=== PATIENT | female | born 1990 | race Caucasian/White ===

== ENCOUNTER 2023-02-24 07:51 | Emergency (ER) | payer BC ==
[2023-02-24 08:48] LABS: Specific Gravity > 1.030 (1.005-1.030)
[2023-02-24 08:50] LABS: Absolute Lymphocytes (CBC) 2.1 K/uL (0.7-4.9); Hematocrit 44.3 % (36.0-45.0); Lymphocytes % 25.8 % (15.3-44.8); MCV 93.1 fL (80-100); MPV 7.2 fL (7.6-11.3); Platelets 340 thou/uL (152-406); RBC Red Blood Cell Count 4.76 M/uL (3.86-4.86)
[2023-02-24 08:50] LABS: Specific Gravity > 1.030 (1.005-1.030); Urine Bacteria <20 /HPF (<20); Urine Bilirubin NEGATIVE (Negative); Urine Blood Negative (Negative); Urine Clarity Extremely Turbid (Clear); Urine Color Yellow (Yellow); Urine Glucose NEGATIVE (Negative); Urine Mucus 1+ /HPF (None Seen); Urine Protein TRACE (Negative); Urine Urobilinogen Normal (Normal); Urine pH 5.5 (5.0-7.0)
[2023-02-24] MEDS ORDERED: DICYCLOMINE HCL 10 MG CAP ONE (09:02)
[2023-02-24] MEDS ORDERED: PANTOPRAZOLE 40 MG INJ ONE (09:02)
[2023-02-24] MEDS ORDERED: NA CHLORIDE 0.9% 1,000 ML ONE (09:02)
[2023-02-24] MEDS ORDERED: LORAZEPAM 1 MG TABLET ONE (09:02)
[2023-02-24 09:04] LABS: Albumin 3.9 g/dL (3.4-5.0); Bilirubin Total 0.5 mg/dL (0.2-1.0); Potassium 4.2 mEq/L (3.5-5.1); Protein, Total 7.7 g/dL (6.4-8.2)
[2023-02-24] MEDS ORDERED: SUCRALFATE 1 GM TABLET ONE (09:51)
--- NOTE | 2023-02-24 10:02 | EDPHYS ---
Physician Documentation [facility] Name: Eleanor Melgar Age: 33 yrs Sex: Female : 1990 Arrival Date: 02/24/2023 Time: 07:51 Bed 14 Private MD: ED Physician Sola Mireles HPI: 02/24 09:58 This 33 yrs old Female presents to ER via Ambulatory with complaints of Abdominal Pain. snw 09:58 The patient presents with abdominal pain in the epigastric area. Onset: The snw symptoms/episode began/occurred acutely. The symptoms do not radiate. Associated signs and symptoms: Pertinent positives: cramping. The symptoms are described as crampy. Severity of pain: At its worst the pain was moderate severe in the emergency department the pain is unchanged. The patient has not experienced similar symptoms in the past. It is unknown whether or not the patient has recently seen a physician. pt smokes and takes adderall. 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 - Social history:: Smoking status: Patient reports the use of cigarette tobacco products, smokes one-half pack cigarettes per day, Patient/guardian denies using alcohol. ROS: 09:58 Constitutional: Negative for fever, chills, and weight loss, Eyes: Negative for injury, snw pain, redness, and discharge, ENT: Negative for injury, pain, and discharge, Neck: Negative for injury, pain, and swelling, Cardiovascular: Negative for chest pain, palpitations, and edema, Respiratory: Negative for shortness of breath, cough, wheezing, and pleuritic chest pain, Back: Negative for injury and pain, : Negative for injury, bleeding, discharge, and swelling, MS/Extremity: Negative for injury and deformity, Skin: Negative for injury, rash, and discoloration, Neuro: Negative for headache, weakness, numbness, tingling, and seizure, Psych: Negative for depression, anxiety, suicide ideation, homicidal ideation, and hallucinations, 09:58 Abdomen/GI: Positive for abdominal pain, Exam: 09:57 Constitutional: This is a well developed, well nourished patient who is awake, alert, snw and in no acute distress. Head/Face: Normocephalic, atraumatic. Eyes: Pupils equal round and reactive to light, extra-ocular motions intact. Lids and lashes normal. Conjunctiva and sclera are non-icteric and not injected. Cornea within normal limits. Periorbital areas with no swelling, redness, or edema. ENT: Nares patent. No nasal discharge, no septal abnormalities noted. Tympanic membranes are normal and external auditory canals are clear. Oropharynx with no redness, swelling, or masses, exudates, or evidence of obstruction, uvula midline. Mucous membranes moist. Neck: Trachea midline, no thyromegaly or masses palpated, and no cervical lymphadenopathy. Supple, full range of motion without nuchal rigidity, or vertebral point tenderness. No Meningismus. Chest/axilla: Normal chest wall appearance and motion. Nontender with no deformity. No lesions are appreciated. Cardiovascular: Regular rate and rhythm with a normal S1 and S2. No gallops, murmurs, or rubs. Normal PMI, no JVD. No pulse deficits. Respiratory: Lungs have equal breath sounds bilaterally, clear to auscultation and percussion. No rales, rhonchi or wheezes noted. No increased work of breathing, no retractions or nasal flaring. Back: No spinal tenderness. No costovertebral tenderness. Full range of motion. Skin: Warm, dry with normal turgor. Normal color with no rashes, no lesions, and no evidence of cellulitis. MS/ Extremity: Pulses equal, no cyanosis. Neurovascular intact. Full, normal range of motion. Neuro: Awake and alert, GCS 15, oriented to person, place, time, and situation. Cranial nerves II-XII grossly intact. Motor strength 5/5 in all extremities. Sensory grossly intact. Cerebellar exam normal. Normal gait. 09:57 Abdomen/GI: Inspection: abdomen appears normal, Bowel sounds: normal, Palpation: moderate abdominal tenderness, in the epigastric area, 09:57 Psych: Behavior/mood is pleasant, cooperative, anxious, Affect is anxious. Oriented to person, place, time, Vital Signs: 08:17 Weight 104.33 kg; Height 5 ft. 9 in. ; Pain 6/10; ld1 09:04 BP 141 / 83; Pulse 81; Resp 18; Pulse Ox 98% ; ld1 09:42 BP 130 / 77; Pulse 71; Resp 17; Pulse Ox 100% ; Pain 7/10; nj1 10:30 BP 121 / 66; Pulse 74; Resp 16; Pulse Ox 100% ; Pain 4/10; nj1 08:17 Body Mass Index 33.96 (104.33 kg, 175.26 cm) ld1 08:17 Pain Scale: Adult ld1 09:42 Pain Scale: Adult nj1 10:30 Pain Scale: Adult nj1 MDM: 08:24 Patient medically screened. snw 09:58 Differential diagnosis: cholecystitis, Cholelithiasis, gastritis, gastroesophageal snw reflux disease, GI Bleed, Irritable bowel syndrome. Data reviewed: vital signs, nurses notes. I considered the following discharge prescriptions or medication management in the emergency department Medications were administered in the Emergency Department. See MAR. Counseling: I had a detailed discussion with the patient and/or guardian regarding the historical points, exam findings, and any diagnostic results supporting the discharge/admit diagnosis, lab results, the need for outpatient follow up, for definitive care. Response to treatment: the patient's symptoms have mildly improved after treatment. Special discussion: Based on the patient's Hx, exam, and Dx evaluation, there is no indication for emergent surgery or inpatient Tx. It is understood by the patient/guardian that if the Sx's persist or worsen they need to return immediately for re-evaluation. Based on the history and exam findings, there is no indication for further emergent testing or inpatient evaluation. 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 I discussed with the patient/guardian the need to see the primary care provider for further evaluation of the symptoms. 02/24 08:18 Order name: CBC with Diff; Complete Time: : ld1 02/24 08:18 Order name: CMP; Complete Time: 09: ld1 02/24 08:18 Order name: Lipase; Complete Time: 09: ld1 02/24 08:18 Order name: Test, Urine; Complete Time: 08:54 ld1 02/24 08:18 Order name: Urinalysis w/ reflexes; Complete Time: 08:54 ld1 02/24 08:26 Order name: Troponin HS; Complete Time: 09:14 snw 02/24 08:18 Order name: IV Saline Lock; Complete Time: 08:41 ld1 02/24 08:18 Order name: Labs collected and sent; Complete Time: 08:41 ld1 Administered Medications: 08:53 Drug: Pantoprazole IVP 40 mg IVP once Route: IVP; Site: left antecubital; ld1 10:30 Follow up: Response: No adverse reaction nj1 08:54 Drug: Dicyclomine PO 20 mg PO once Route: PO; ld1 10:30 Follow up: Response: No adverse reaction nj1 08:54 Drug: LORazepam PO 1 mg PO once; sublingually Route: PO; ld1 10:30 Follow up: Response: No adverse reaction nj1 08:54 Drug: NS 0.9% IV 1000 ml IV at 125 ml/hr continuous Route: IV; Rate: 125 ml/hr; Site: ld1 left antecubital; 10:30 Follow up: IV Status: Order to discontinue infusion; IV Intake: 600ml nj1 09:41 Drug: Sucralfate PO 1 grams PO once Route: PO; nj1 10:30 Follow up: Response: No adverse reaction nj1 Disposition Summary: 02/24/23 10:01 Discharge Ordered Notes: Location: Home snw Condition: Stable snw Diagnosis - Gastritis, unspecified snw Followup: snw - With: Emergency Department - When: As needed - Reason: Worsening of condition Followup: snw - With: Private Physician - When: 2 - 3 days - Reason: Recheck today's complaints, Continuance of care, Re-evaluation by your physician Followup: snw - With: Vasquez Dallas MD - When: 5 - 6 days - Reason: Recheck today's complaints, Continuance of care Discharge Instructions: - Discharge Summary Sheet snw - Diet for Irritable Bowel Syndrome snw - Gastritis, Adult snw - Steps to Quit Smoking snw - Health Risks of Smoking snw - Managing the Challenge of Quitting Smoking snw Forms: - Medication Reconciliation Form snw - Thank You Letter snw - Antibiotic Education snw - Prescription Opioid Use snw - Patient Portal Instructions snw - Leadership Thank You Letter snw Prescriptions: - Carafate 1 gram Oral Tablet - take 1 tablet ORAL route 4 times per day take on an empty stomach, beginning on snw waking and last dose at bedtime; 100 tablet; Refills: 0, Product Selection Permitted - dicyclomine 20 mg Oral tablet - take 1 tablet ORAL route 3 times per day As needed; 21 tablet; Refills: 0, snw Product Selection Permitted Signatures: Dispatcher [employer] EDIN [place] Rangel FNP-C WATER 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
--- NOTE | 2023-02-24 10:02 | ER ---
Nurse's Notes [facility] Name: Eleanor Melgar Age: 33 yrs Sex: Female : 1990 Arrival Date: 02/24/2023 Time: 07:51 Bed 14 Private MD: Diagnosis: Gastritis, unspecified Presentation: 02/24 08:17 Chief complaint: Patient states: Epigastric pain X 1 day - constant. Coronavirus ld1 screen: At this time, the client does not indicate any symptoms associated with coronavirus-19. Ebola Screen: No symptoms or risks identified at this time. Initial Sepsis Screen:. Onset of symptoms was February 24, 2023. 08:17 Method Of Arrival: Ambulatory ld1 08:17 Acuity: FRANKLYN 3 ld1 10:30 Risk Assessment: Do you want to hurt yourself or someone else? Patient reports no nj1 desire to harm self or others. 10:30 Initial Sepsis Screen: Does the patient meet any 2 criteria? No. Patient's initial nj1 sepsis screen is negative. Does the patient have a suspected source of infection? No. Patient's initial sepsis screen is negative. Triage Assessment: 08:18 General: Appears in no apparent distress. uncomfortable, Behavior is calm, cooperative, ld1 appropriate for age. Pain: Complains of pain in epigastric area Pain does not radiate. Pain currently is 8 out of 10 on a pain scale. Quality of pain is described as throbbing, Pain began suddenly, Is continuous. EENT: No signs and/or symptoms were reported regarding the EENT system. Neuro: Level of Consciousness is awake, alert, obeys commands, Oriented to person, place, time, situation. Cardiovascular: Capillary refill < 3 seconds Patient's skin is warm and dry. Respiratory: Airway is patent Respiratory effort is even, unlabored. GI: Abdomen is round non-distended, Reports epigastric pain. : No signs and/or symptoms were reported regarding the genitourinary system. Derm: No signs and/or symptoms reported regarding the dermatologic system. Musculoskeletal: No signs and/or symptoms reported regarding the musculoskeletal system. 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 - Social history:: Smoking status: Patient reports the use of cigarette tobacco products, smokes one-half pack cigarettes per day, Patient/guardian denies using alcohol. Screenin:20 [facility] ED Fall Risk Assessment (Adult) History of falling in the last 3 months, ld1 including since admission No falls in past 3 months (0 pts). Abuse screen: Denies threats or abuse. Denies injuries from another. Nutritional screening: No deficits noted. Tuberculosis screening: No symptoms or risk factors identified. Assessment: 08:20 Reassessment: See triage assessment. ld1 09:42 Reassessment: Patient appears in no apparent distress at this time. Patient and/or nj1 family updated on plan of care and expected duration. Pain level reassessed. Patient is alert, oriented x 3, equal unlabored respirations, skin warm/dry/pink. Pain: Complains of pain in abdomen Pain currently is 7 out of 10 on a pain scale. 10:30 Reassessment: Patient appears in no apparent distress at this time. Patient and/or nj1 family updated on plan of care and expected duration. Pain level reassessed. Patient is alert, oriented x 3, equal unlabored respirations, skin warm/dry/pink. Patient states feeling better. Patient states symptoms have improved. Vital Signs: 08:17 Weight 104.33 kg; Height 5 ft. 9 in. ; Pain 6/10; ld1 09:04 BP 141 / 83; Pulse 81; Resp 18; Pulse Ox 98% ; ld1 09:42 BP 130 / 77; Pulse 71; Resp 17; Pulse Ox 100% ; Pain 7/10; nj1 10:30 BP 121 / 66; Pulse 74; Resp 16; Pulse Ox 100% ; Pain 4/10; nj1 08:17 Body Mass Index 33.96 (104.33 kg, 175.26 cm) ld1 08:17 Pain Scale: Adult ld1 09:42 Pain Scale: Adult nj1 10:30 Pain Scale: Adult nj1 ED Course: 07:55 Patient arrived in ED. mg5 08:17 Jen Rees, SIMON is Primary Nurse. ld1 08:18 Triage completed. ld1 08:18 Arm band placed on right wrist. ld1 08:20 Patient has correct armband on for positive identification. Placed in gown. Bed in low ld1 position. Call light in reach. Side rails up X2. Pulse ox on. NIBP on. Door closed. Noise minimized. Warm blanket given. 08:20 No provider procedures requiring assistance completed. ld1 08:24 Verona Rangel FNP-C is PHCP. snw 08:24 Sola Mireles MD is Attending Physician. snw 08:41 Inserted saline lock: 20 gauge in left antecubital area, using aseptic technique. Blood ld1 collected. 10:01 Vasquez Dallas MD is Referral Physician. snw 10:30 Provided Education on: discharge instructions. nj1 10:30 IV discontinued, intact, bleeding controlled. nj1 Administered Medications: 08:53 Drug: Pantoprazole IVP 40 mg IVP once Route: IVP; Site: left antecubital; ld1 10:30 Follow up: Response: No adverse reaction nj1 08:54 Drug: Dicyclomine PO 20 mg PO once Route: PO; ld1 10:30 Follow up: Response: No adverse reaction nj1 08:54 Drug: LORazepam PO 1 mg PO once; sublingually Route: PO; ld1 10:30 Follow up: Response: No adverse reaction nj1 08:54 Drug: NS 0.9% IV 1000 ml IV at 125 ml/hr continuous Route: IV; Rate: 125 ml/hr; Site: ld1 left antecubital; 10:30 Follow up: IV Status: Order to discontinue infusion; IV Intake: 600ml nj1 09:41 Drug: Sucralfate PO 1 grams PO once Route: PO; nj1 10:30 Follow up: Response: No adverse reaction nj1 Medication: 08:20 VIS not applicable for this client. ld1 Intake: 10:30 IV: 600ml; Total: 600ml. nj1 Outcome: 10:01 Discharge ordered by . snw 10:30 Discharged to home ambulatory, nj1 10:30 Condition: stable 10:30 Discharge instructions given to patient, Instructed on discharge instructions, follow up and referral plans. medication usage, Demonstrated understanding of instructions, follow-up care, medications, Prescriptions given X 2, 10:37 Patient left the ED. nj1 Signatures: Rangel, [place], SQL APPLICATION DEVELOPER-C SQL APPLICATION DEVELOPER-Csnw Jen Rees RN RN ld1 Veronica Martinez RN RN nj1 Tabitha Nelson mg5 Corrections: (The following items were deleted from the chart) 08:19 08:18 PMHx: depression; ld1 ld1
[2023-02-24 11:07] VITALS: O2SAT 100
[2023-02-24 11:08] VITALS: BP 121/66
== END 2023-02-24 10:37 | disposition home or self-care (01) ==
LOC: ER 07:51
DX: K29.70 Gastritis, unspecified, without bleeding (principal); F17.210 Nicotine dependence, cigarettes, uncomplicated
CPT/HCPCS: 96361; 85025; 81001; 36415; 81025; 84484; 83690; 80053; 96374; 99284; C9113; J7030

== ENCOUNTER 2024-01-28 13:05 | Emergency (ER) | payer BC ==
[2024-01-28] MEDS ORDERED: ONDANSETRON 4 MG/2 ML VIAL ONE (14:21)
[2024-01-28] MEDS ORDERED: MORPHINE 4 MG/ML SYR ONE (14:21)
[2024-01-28] MEDS ORDERED: FAMOTIDINE 20 MG/2 ML VIAL IV ONE (14:21)
[2024-01-28 14:32] LABS: Absolute Basophils 0.1 K/uL (0-0.5); Absolute Eosinophils 0.3 K/uL (0-0.5); Absolute Lymphocytes (CBC) 2.3 K/uL (0.7-4.9); Absolute Monocytes 0.5 K/uL (0.1-1.3); Absolute Neutrophil 5.4 K/uL (1.8-8.0); Basophils % 1.1 % (0-1.3); Hematocrit 40.7 % (36.0-45.0); Hemoglobin 13.6 g/dL (12.0-15.0); Lymphocytes % 26.6 % (15.3-44.8); MCH 31.3 pg (27.0-35.0); MCHC 33.3 g/dL (32.0-36.0); MCV 93.9 fL (80-100); MPV 7.7 fL (7.6-11.3); Monocytes % 6.3 % (3.3-12.3); Platelets 301 thou/uL (152-406); RBC Red Blood Cell Count 4.34 M/uL (3.86-4.86); Red Cell Distribution Width 12.7 % (12.1-15.2)
[2024-01-28 14:36] LABS: Specific Gravity 1.021 (1.005-1.030)
[2024-01-28 14:43] LABS: AST/SGOT 13 U/L (15-37); Albumin 3.2 g/dL (3.4-5.0); Albumin/Globulin Ratio 0.9 (1.1-1.8); Alkaline Phosphatase 88 U/L (45-117); Anion Gap 8.9 mEq/L (5.0-15.0); BUN Blood Urea Nitrogen 9 mg/dL (7-18); Bicarbonate 25 mEq/L (21-32); Bilirubin Total 0.3 mg/dL (0.2-1.0); Globulin 3.5 g/dL (2.3-3.5); Glomerular Filtration Rate 120 ml/min (=/>90); Glucose Level 98 mg/dL (74-106); Lipase 27 U/L (13-75); Potassium 3.9 mEq/L (3.5-5.1); Protein, Total 6.7 g/dL (6.4-8.2); Sodium Level 139 mEq/L (136-145)
[2024-01-28 14:44] LABS: ALT/SGPT < 14 U/L (13-56)
[2024-01-28 14:44] LABS: Specific Gravity 1.021 (1.005-1.030); Urine Bacteria None Seen /HPF (<20); Urine Bilirubin NEGATIVE (Negative); Urine Blood Trace (Negative); Urine Clarity Turbid (Clear); Urine Color Light-Yellow (Yellow); Urine Culture Reflex Order NOT NEEDED; Urine Glucose NEGATIVE (Negative); Urine Ketones NEGATIVE (Negative); Urine Microscopic Reflex YN ORDER UMIC; Urine Mucus Slight /HPF (None Seen); Urine Nitrite NEGATIVE (Negative); Urine Protein NEGATIVE (Negative); Urine RBC <5 /HPF (None Seen); Urine Urobilinogen Normal (Normal); Urine WBC <5 /HPF (<5); Urine pH 5.5 (5.0-7.0)
--- NOTE | 2024-01-28 14:44 | RAD REPORT ---
EXAMINATION: ONE VIEW CHEST XR CLINICAL INDICATION: Female, 34 years old.epigastric pain TECHNIQUE: 1 View, AP supine, X-ray of the chest was performed. [id number]. COMPARISON: No prior exam. FINDINGS: Lungs and pleura: Clear lungs. No effusion. Heart and mediastinum: Normal heart size. Unremarkable mediastinal contours. Osseous structures: No acute abnormality. Tubes/lines: None Other: None. IMPRESSION: No acute intrathoracic abnormality.
--- NOTE | 2024-01-28 15:02 | RAD REPORT ---
EXAMINATION: CT ABDOMEN AND PELVIS WITH CONTRAST CLINICAL INDICATION: Female, 34 years old.EPIGASTRIC PAIN TECHNIQUE: CT abdomen and pelvis was performed, after the [facility] Axial, sagittal and coronal reconstructions were obtained. One or more of the following dose reduction techniques were used: Automated exposure control, adjustment of the mA and/o r kV according to patient size, and/or iterative reconstruction. Unless otherwise specified, incidental findings do not require dedicated imaging follow-up. [id number]. COMPARISON: No prior exam. FINDINGS: LOWER CHEST: The visualized lung bases are clear. LIVER: Normal in size and contour. No focal lesion. GALLBLADDER/BILE DUCT: No biliary ductal dilatation.?Cholecystectomy PANCREAS: No significant abnormality. SPLEEN: Normal size. No focal lesion. ADRENALS: Normal; no mass. KIDNEYS AND URETERS: Normal size and contour. No hydronephrosis. GASTROINTESTINAL TRACT: Stomach is non-dilated. Small bowel has normal course and caliber. No colonic wall thickening or pericolonic inflammatory changes. Normal appendix. PERITONEUM: No ascites. LYMPH NODES: No lymphadenopathy. ABDOMINAL AORTA AND OTHER VESSELS: Normal caliber aorta and IVC. URINARY BLADDER: Normal contour. REPRODUCTIVE ORGANS: No pathologic process IUD. MUSCULOSKELETAL: No acute or suspicious osseous abnormality. ADDITIONAL FINDINGS: None. IMPRESSION: No acute or significant abnormalities seen in the abdomen or pelvis. Normal appendix.
--- NOTE | 2024-01-28 15:21 | EDPHYS ---
Physician Documentation [facility] Name: Eleanor Melgar Age: 34 yrs Sex: Female : 1990 Arrival Date: 01/28/2024 Time: 13:05 Bed 13 Private MD: ED Physician Karl Gooden HPI: 01/27 13:18 This 34 yrs old Female presents to ER via Ambulatory with complaints of Abdominal Pain, cp Shortness Of Breath. 13:18 The patient presents with abdominal pain in the epigastric area. Onset: The cp symptoms/episode began/occurred last night, and became worse today. The symptoms do not radiate. Associated signs and symptoms: Pertinent positives: nausea, Pertinent negatives: constipation, diarrhea, vomiting. 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 - Infectious Disease History:: Denies. - Social history:: Smoking status: Patient reports the use of cigarette tobacco products, smokes one pack cigarettes per day. ROS: 13:25 Constitutional: Negative for body aches, chills, fever, poor PO intake, cp 13:25 Eyes: Negative for injury, pain, redness, and discharge, cp 13:25 ENT: Negative for drainage from ear(s), ear pain, sore throat, difficulty swallowing, difficulty handling secretions, 13:25 Cardiovascular: Negative for chest pain, edema, palpitations, 13:25 Respiratory: Negative for cough, shortness of breath, wheezing, 13:25 Abdomen/GI: Positive for abdominal pain, nausea, Negative for vomiting, diarrhea, constipation, 13:25 Back: Negative for radiated pain, 13:25 Neuro: Negative for altered mental status, headache, weakness, Exam: 14:10 Constitutional: The patient appears in no acute distress, alert, awake, cp non-diaphoretic, non-toxic, well developed, well nourished, uncomfortable, 14:10 Head/Face: Normocephalic, atraumatic. cp 14:10 Eyes: Periorbital structures: appear normal, Conjunctiva: normal, no exudate, no injection, Sclera: no appreciated abnormality, Lids and lashes: appear normal, bilaterally, 14:10 ENT: External ear(s): are unremarkable, Nose: is normal, Mouth: Lips: moist, Oral mucosa: pink and intact, moist, Posterior pharynx: Airway: no evidence of obstruction, patent, 14:10 Chest/axilla: Inspection: normal, 14:10 Cardiovascular: Rate: normal, Rhythm: regular, 14:10 Respiratory: the patient does not display signs of respiratory distress, Respirations: normal, no use of accessory muscles, no retractions, labored breathing, is not present, Breath sounds: are clear throughout, no decreased breath sounds, no stridor, no wheezing, 14:10 Abdomen/GI: Inspection: abdomen appears normal, Bowel sounds: active, all quadrants, Palpation: soft, in all quadrants, severe abdominal tenderness, in the epigastric area, rebound tenderness, is not appreciated, 14:10 Back: CVA tenderness, is absent, cp Vital Signs: 13:16 BP 123 / 79; Pulse 91; Resp 16; Temp 97.3; Pulse Ox 100% on R/A; Weight 108.86 kg; iw Height 5 ft. 9 in. ; Pain 5/10; 14:00 BP 118 / 65; Pulse 83; Resp 16; Pulse Ox 98% on R/A; me1 15:00 BP 121 / 69; Pulse 79; Resp 15; Pulse Ox 96% on R/A; me1 15:58 BP 105 / 87; Pulse 72; Resp 14; Temp 98.1; Pulse Ox 100% ; me1 16:07 BP 128 / 92; Pulse 75; Resp 15; Temp 98.5; Pulse Ox 99% ; me1 13:16 Body Mass Index 35.44 (108.86 kg, 175.26 cm) iw 13:16 Pain Scale: Adult iw MDM: 13:18 Patient medically screened. hilaria 14:00 Differential diagnosis: gastritis, pancreatitis, Peptic Ulcer Disease, Perf. Duodenal cp Ulcer, Perf. Gastric Ulcer, Pyelonephritis, Ureterolithiasis, urinary tract infection, choledocholithiasis. 15:18 Data reviewed: vital signs, nurses notes, lab test result(s), radiologic studies, CT cp scan, plain films. I considered the following discharge prescriptions or medication management in the emergency department Medications were administered in the Emergency Department. See MAR. Counseling: I had a detailed discussion with the patient and/or guardian regarding the historical points, exam findings, and any diagnostic results supporting the discharge/admit diagnosis, lab results, radiology results. Response to treatment: the patient's symptoms have markedly improved after treatment, and as a result, I will discharge patient. Special discussion: Based on the patient's Hx, exam, and Dx evaluation, there is no indication for emergent surgery or inpatient Tx. It is understood by the patient/guardian that if the Sx's persist or worsen they need to return immediately for re-evaluation. 01/27 13:29 Order name: CBC with Diff; Complete Time: 14:55 cp 01/27 13:29 Order name: CMP; Complete Time: 14:55 cp 01/27 14:56 Interpretation: Normal except: CL 109; AST 13; ALB 3.2; A/G 0.9. cp 01/27 13:29 Order name: Lipase; Complete Time: 14:55 cp 01/27 13:29 Order name: Test, Urine; Complete Time: 14:55 cp 01/27 13:29 Order name: Urinalysis w/ reflexes; Complete Time: 14:55 cp 01/27 14:56 Interpretation: Normal except: [facility] Turbid; UBLD Trace; UESTR 25. cp 01/27 14:08 Order name: XRAY Chest (1 view); Complete Time: 14:55 cp 01/27 14:22 Order name: CT Abd/Pelvis - IV Contrast Only; Complete Time: 15:11 cp 01/27 15:11 Interpretation: Report reviewed. cp 01/27 13:29 Order name: IV Saline Lock; Complete Time: 14:18 cp 01/27 13:29 Order name: Labs collected and sent; Complete Time: 14:18 cp 01/27 15:11 Order name: PO challenge; Complete Time: 15:56 cp Administered Medications: 14:24 Not Given (Patient Refused): morphineor iv 2 mg IVP once over 4 mins me1 14:25 Drug: Ondansetron IVP 4 mg IVP once; over 2 minutes Route: IVP; Site: right forearm; me1 14:30 Follow up: Response: No adverse reaction; Nausea is decreased me1 14:25 Drug: Famotidine IVP 20 mg IVP once; dilute with 10 mL 0.9% NaCl; give over 2 minutes me1 Route: IVP; Site: right forearm; 14:30 Follow up: Response: No adverse reaction me1 16:01 Drug: GI Cocktail without - (Maalox PO 30 ml, Lidocaine Mucous Membrane 2 % 15 me1 ml) PO once Route: PO; 16:07 Follow up: Response: No adverse reaction; Pain is decreased me1 Disposition Summary: 01/28/24 15:19 Discharge Ordered Notes: Location: Home cp Problem: new cp Symptoms: have improved cp Condition: Stable cp Diagnosis - Epigastric pain cp Followup: cp - With: Private Physician - When: 2 - 3 days - Reason: Worsening of condition Discharge Instructions: - Discharge Summary Sheet cp - Abdominal Pain, Adult cp - Gastroesophageal Reflux Disease, Adult cp Forms: - Medication Reconciliation Form cp - Antibiotic Education cp - Prescription Opioid Use cp - Patient Portal Instructions cp - Leadership Thank You Letter cp Prescriptions: - Carafate 1 gram Oral tablet - take 1 tablet ORAL route 4 times per day take on an empty stomach, beginning on cp waking and last dose at bedtime as needed for pain. dissolve tablet in 6-8 ounces warm water; 100 tablet; Refills: 0, Product Selection Permitted - Protonix 40 mg Oral Tablet - take 1 tablet ORAL route once daily; 30 tablet; Refills: 0, Product Selection cp Permitted - Zofran 4 mg Oral Tablet - take 1 tablet ORAL route every 12 hours As needed; 20 tablet; Refills: 0, cp Product Selection Permitted Signatures: Dispatcher [employer] Karl Rincon MD MD cha Williams, Irene, RN RN iw Page, Corey, PA PA cp Temitope Adkins RN RN me1
--- NOTE | 2024-01-28 15:21 | ER ---
Nurse's Notes [facility] Name: Eleanor Melgar Age: 34 yrs Sex: Female : 1990 Arrival Date: 01/28/2024 Time: 13:05 Bed 13 Private MD: Diagnosis: Epigastric pain Presentation: 01/27 13:16 Chief complaint: Patient states: epigastric pain since last night, makes it hard to iw breathe, vomited once. Coronavirus screen: At this time, the client does not indicate any symptoms associated with coronavirus-19. Ebola Screen: No symptoms or risks identified at this time. Initial Sepsis Screen: Does the patient meet any 2 criteria? No. Patient's initial sepsis screen is negative. Does the patient have a suspected source of infection? No. Patient's initial sepsis screen is negative. Risk Assessment: Do you want to hurt yourself or someone else? Patient reports no desire to harm self or others. Onset of symptoms was January 27, 2024. 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 - Infectious Disease History:: Denies. - Social history:: Smoking status: Patient reports the use of cigarette tobacco products, smokes one pack cigarettes per day. Screenin:31 [facility] ED Fall Risk Assessment (Adult) History of falling in the last 3 months, me1 including since admission No falls in past 3 months (0 pts) Confusion or Disorientation No (0 pts) Intoxicated or Sedated No (0 pts) Impaired Gait No (0 pts) Mobility Assist Device Used No (0 pt) Altered Elimination No (0 pt) Score/Fall Risk Level 0 - 2 = Low Risk Maintained a safe environment, Provided non-skid footwear, Hourly rounding (assess needs \T\ fall precautionary measures) done. Abuse screen: Denies threats or abuse. Nutritional screening: No deficits noted. Tuberculosis screening: No symptoms or risk factors identified. Assessment: 14:31 General: Appears uncomfortable, well groomed, well developed, well nourished, Behavior me1 is calm, cooperative, appropriate for age, Reports epigastric pain since last night, makes it hard to breathe, vomited once. Pain: Complains of pain in xiphoid area Pain does not radiate. Pain currently is 4 out of 10 on a pain scale. Quality of pain is described as pressure, Pain began 1 day ago. Is continuous. Neuro: Level of Consciousness is awake, alert, obeys commands, Oriented to person, place, time, situation, Appropriate for age. Cardiovascular: Patient's skin is warm and dry. Respiratory: Airway is patent Respiratory effort is even, unlabored, Respiratory pattern is regular, symmetrical. GI: Abdomen is round distended, Bowel sounds present X 4 quads. Abdomen is tender to palpation in right upper quadrant and left upper quadrant Reports epigastric pain, nausea, vomiting, since yesterday. : No signs and/or symptoms were reported regarding the genitourinary system. EENT: No signs and/or symptoms were reported regarding the EENT system. Derm: Skin is intact, is healthy with good turgor, Skin is pink, warm \T\ dry. Musculoskeletal: No signs and/or symptoms reported regarding the musculoskeletal system. Vital Signs: 13:16 BP 123 / 79; Pulse 91; Resp 16; Temp 97.3; Pulse Ox 100% on R/A; Weight 108.86 kg; iw Height 5 ft. 9 in. ; Pain 5/10; 14:00 BP 118 / 65; Pulse 83; Resp 16; Pulse Ox 98% on R/A; me1 15:00 BP 121 / 69; Pulse 79; Resp 15; Pulse Ox 96% on R/A; me1 15:58 BP 105 / 87; Pulse 72; Resp 14; Temp 98.1; Pulse Ox 100% ; me1 16:07 BP 128 / 92; Pulse 75; Resp 15; Temp 98.5; Pulse Ox 99% ; me1 13:16 Body Mass Index 35.44 (108.86 kg, 175.26 cm) iw 13:16 Pain Scale: Adult iw ED Course: 13:08 Patient arrived in ED. mr 13:11 Karl Yap PA is PHCP. cp 13:11 Karl Gooden MD is Attending Physician. cp 13:16 Triage completed. iw 13:17 Arm band placed on. iw 13:45 Temitope Adkins, RN is Primary Nurse. me1 14:18 CBC with Diff Sent. me1 14:18 CMP Sent. me1 14:18 Lipase Sent. me1 14:18 Test, Urine Sent. me1 14:18 Urinalysis w/ reflexes Sent. me1 14:18 Initial lab(s) drawn, by ED staff, sent to lab. Urine collected: clean catch specimen, me1 clear. Inserted saline lock: 22 gauge in right forearm, using aseptic technique. 14:31 Patient has correct armband on for positive identification. Bed in low position. Call me1 light in reach. Side rails up X 1. Provided Education on: POC. Verbalized understanding.. Client placed on continuous cardiac and pulse oximetry monitoring. NIBP monitoring applied. Pulse ox on. NIBP on. 14:31 No provider procedures requiring assistance completed. me1 14:34 XRAY Chest (1 view) In Process Unspecified. EDMS 14:51 CT Abd/Pelvis - IV Contrast Only In Process Unspecified. EDMS 15:19 Vasquez Dallas MD is Referral Physician. cp 15:19 Referral Physician role handed off by Vasquez Dallas MD cp 16:07 IV discontinued, intact, bleeding controlled, No redness/swelling at site. Pressure me1 dressing applied. Administered Medications: 14:24 Not Given (Patient Refused): morphineor iv 2 mg IVP once over 4 mins me1 14:25 Drug: Ondansetron IVP 4 mg IVP once; over 2 minutes Route: IVP; Site: right forearm; me1 14:30 Follow up: Response: No adverse reaction; Nausea is decreased me1 14:25 Drug: Famotidine IVP 20 mg IVP once; dilute with 10 mL 0.9% NaCl; give over 2 minutes me1 Route: IVP; Site: right forearm; 14:30 Follow up: Response: No adverse reaction me1 16:01 Drug: GI Cocktail without - (Maalox PO 30 ml, Lidocaine Mucous Membrane 2 % 15 me1 ml) PO once Route: PO; 16:07 Follow up: Response: No adverse reaction; Pain is decreased me1 Medication: 14:31 VIS not applicable for this client. me1 Outcome: 15:19 Discharge ordered by . cp 16:07 Discharged to home ambulatory, with significant other, me1 16:07 Condition: stable 16:07 Discharge instructions given to patient, significant other, Instructed on discharge instructions, follow up and referral plans. medication usage, Demonstrated understanding of instructions, follow-up care, medications, Prescriptions given X 3, 16:08 Patient left the ED. me1 Signatures: Dispatcher [employer] EDMS America Hernandez, Reg Reg mr Faith Peres RN RN iw Karl Yap PA PA cp Eddleman, Michelle, RN RN me1 Corrections: (The following items were deleted from the chart) 13:18 13:16 BP 123 / 79; Pulse 91bpm; Resp 16bpm; Pulse Ox 100% RA; Temp 97.3F; iw iw 14:31 13:16 Chief complaint: Patient states: epigastric pain since last night, makes it hard me1 to breathe, vomited once iw
[2024-01-28] MEDS ORDERED: LIDOCAINE VISCOUS 2% 10ML ORAL SOLN ONE (15:59)
[2024-01-28] MEDS ORDERED: MAGNES/ALUMIN/SIMET 30ML UCUP ONE (15:59)
[2024-01-28 17:17] VITALS: BP 128/92; TEMP 98.5; O2SAT 99
== END 2024-01-28 16:08 | disposition home or self-care (01) ==
LOC: ER 13:05
DX: R10.13 Epigastric pain (principal); R11.0 Nausea
CPT/HCPCS: 85025; 81001; 36415; 81025; 83690; 80053; 74177; 71045; Q9967; J2405